=== PATIENT | female | born 1950 | race Caucasian/White ===

== ENCOUNTER 2024-09-29 07:59 | Day surgery (SDC) | payer MEDICARE, OTHER ==
[2024-09-29] MEDS ORDERED: Dexamethasone 4 MG/ML SDV IV ONE (08:00)
[2024-09-29] MEDS ORDERED: Sodium Chloride 0.9% 10 ML Syringe IV ONE (08:00)
[2024-09-29] MEDS ORDERED: hydrALAZINE 20 MG/ML SDV IV ONE (08:00)
[2024-09-29] MEDS ORDERED: Midazolam 1 MG/ML 2 ML SDV IV ONE (08:00)
[2024-09-29] MEDS: Proparacaine 0.5% Ophth Soln 15 ML Bottle EYELF ONE ×2 (08:39→09:40)
[2024-09-29] MEDS: Moxifloxacin 0.5% Ophth Soln 3 ML Bottle EYELF ONE (08:39)
[2024-09-29] MEDS: Povidone-Iodine 5% Sterile Ophth Soln 30 ML Bottle EYELF ONE ×2 (08:41→09:41)
[2024-09-29] MEDS: Tropicamide 1% Ophth Soln 15 ML Bottle EYELF ONE (08:42)
[2024-09-29] MEDS: Phenylephrine 10% Ophth Soln 5 ML Bot EYELF PRN (08:42)
[2024-09-29] MEDS: Timolol Maleate 0.5% Ophth Soln 5 ML Bottle EYELF ONE (08:43)
[2024-09-29] MEDS: Cataract Ophth Solution EYELF ONE (08:44)
[2024-09-29] MEDS: Apraclonidine 0.5% Ophth Soln 5 ML Bot EYELF ONE (09:41)
[2024-09-29] MEDS: Diclofenac Sodium 0.1% Ophth Soln 5 ML Bottle EYELF ONE (09:42)
[2024-09-29] MEDS: Dexamethasone/Neomycin/Polymyxin B Ophth Oint 3.5 GM Tube EYELF ONE (09:43)
[2024-09-29] MEDS: VANCOmycin 500 MG SDV EYELF ONE (09:44)
[2024-09-29] MEDS: Lidocaine 1% 30 ML SDV ONE (09:44)
[2024-09-29] MEDS ORDERED: Acetaminophen/Codeine 300-30 MG Tab PO PRN (09:45)
[2024-09-29] MEDS ORDERED: VANCOmycin 500 MG SDV EYELF ONE (09:45)
[2024-09-29] MEDS ORDERED: Lidocaine 1% 30 ML SDV INJECT ONE (09:45)
[2024-09-29] MEDS ORDERED: Acetaminophen 325 MG Tab PO PRN (09:45)
[2024-09-29] MEDS ORDERED: Ondansetron 4 MG/2 ML SDV IVPUSH PRN (09:45)
== END 2024-09-29 11:12 | disposition home or self-care (01) ==
LOC: DL.SDS 07:59
PROVIDERS: ATTEND Ophthalmology
DX: H25.812 Combined forms of age-related cataract, left eye (principal); I10 Essential (primary) hypertension; E78.5 Hyperlipidemia, unspecified; K21.9 Gastro-esophageal reflux disease without esophagitis; Z87.891 Personal history of nicotine dependence; Z79.899 Other long term (current) drug therapy
CPT/HCPCS: 66984; A9270; J2003; J3370; J0360; J1100; J2250; J3490

== ENCOUNTER 2024-10-27 08:37 | Day surgery (SDC) | payer MEDICARE, OTHER ==
[2024-10-27] MEDS ORDERED: Ondansetron 4 MG/2 ML SDV IVPUSH PRN (09:00)
[2024-10-27] MEDS ORDERED: Acetaminophen 325 MG Tab PO PRN (09:00)
[2024-10-27] MEDS ORDERED: VANCOmycin 500 MG SDV EYERT ONE (09:00)
[2024-10-27] MEDS ORDERED: Acetaminophen/Codeine 300-30 MG Tab PO PRN (09:00)
[2024-10-27] MEDS ORDERED: Lidocaine 1% 30 ML SDV INJECT ONE (09:00)
[2024-10-27] MEDS: Proparacaine 0.5% Ophth Soln 15 ML Bottle EYERT ONE ×2 (09:07→09:33)
[2024-10-27] MEDS: Povidone-Iodine 5% Sterile Ophth Soln 30 ML Bottle EYERT ONE ×2 (09:07→09:33)
[2024-10-27] MEDS: Moxifloxacin 0.5% Ophth Soln 3 ML Bottle EYERT ONE (09:07)
[2024-10-27] MEDS: Tropicamide 1% Ophth Soln 15 ML Bottle EYERT ONE (09:07)
[2024-10-27] MEDS: Phenylephrine 10% Ophth Soln 5 ML Bot EYERT PRN (09:08)
[2024-10-27] MEDS: Timolol Maleate 0.5% Ophth Soln 5 ML Bottle EYERT ONE (09:08)
[2024-10-27] MEDS: Cataract Ophth Solution EYERT ONE (09:08)
[2024-10-27] MEDS: Apraclonidine 0.5% Ophth Soln 5 ML Bot EYERT ONE (09:35)
[2024-10-27] MEDS: Dexamethasone/Neomycin/Polymyxin B Ophth Oint 3.5 GM Tube EYERT ONE (09:36)
[2024-10-27] MEDS: Diclofenac Sodium 0.1% Ophth Soln 5 ML Bottle EYERT ONE (09:36)
[2024-10-27] MEDS: Lidocaine 1% 30 ML SDV INJECT ONE (09:37)
[2024-10-27] MEDS: VANCOmycin 500 MG SDV EYERT ONE (09:37)
== END 2024-10-27 10:37 | disposition home or self-care (01) ==
LOC: DL.SDS 08:37
PROVIDERS: ATTEND Ophthalmology
DX: E11.36 Type 2 diabetes mellitus with diabetic cataract (principal); H25.811 Combined forms of age-related cataract, right eye; K21.9 Gastro-esophageal reflux disease without esophagitis; I25.10 Atherosclerotic heart disease of native coronary artery without angina pectoris; E11.22 Type 2 diabetes mellitus with diabetic chronic kidney disease; I12.9 Hypertensive chronic kidney disease with stage 1 through stage 4 chronic kidney disease, or unspecified chronic kidney disease; N18.32 Chronic kidney disease, stage 3b; E78.5 Hyperlipidemia, unspecified; Z79.899 Other long term (current) drug therapy
CPT/HCPCS: A9270-GY; J2003; J3370; J3490